=== PATIENT | female | born 1935 | race Caucasian/White ===

== ENCOUNTER 2019-04-22 10:12 | Emergency (ER) | payer OTHER, BC ==
[~2019-04-22] VITALS: Ht 160 cm; Wt 75.7 kg
[2019-04-22 11:52] LABS: ALKALINE PHOSPHATASE 93 U/L (46-116); ALT/SGPT 16 U/L (14-59); AST/SGOT 13 U/L (15-37); BILIRUBIN TOTAL 0.51 mg/dL (0.20-1.00); CALCIUM 8.3 mg/dL (8.5-10.1); CHLORIDE SERUM 107 mmol/L (98-107); CREATININE SERUM 1.7 mg/dL (0.6-1.0); GLUCOSE SERUM 124 mg/dL (74-106); POTASSIUM SERUM 4.7 mmol/L (3.5-5.1); SODIUM SERUM 140 mmol/L (136-145); TOTAL PROTEIN, SERUM 6.9 g/dL (6.4-8.2)
[2019-04-22 12:01] LABS: ALBUMIN 2.9 g/dL (3.4-5.0)
[2019-04-22 12:02] LABS: BASOPHIL % 1.2 % (0-2); PLATELET COUNT 255 x10^3mcL (130-400)
[2019-04-22 12:11] LABS: RED CELL DISTRIBUTION WIDTH 25.8 % (11.5-14.5)
[2019-04-22 12:19] VITALS: BP 99/48
[2019-04-22 12:57] LABS: ovalocyte/elliptocyte 1+; rbc morphology (normal/abnorm) ABNORMAL (NORMAL); tear drop cell (dacryocyte) 1+
== END 2019-04-22 13:22 | disposition left against medical advice (07) ==
LOC: ED 10:12
PROVIDERS: Emergency Medicine
DX: K92.2 Gastrointestinal hemorrhage, unspecified (principal); D64.9 Anemia, unspecified; I48.91 Unspecified atrial fibrillation; E11.22 Type 2 diabetes mellitus with diabetic chronic kidney disease; I12.9 Hypertensive chronic kidney disease with stage 1 through stage 4 chronic kidney disease, or unspecified chronic kidney disease; N18.9 Chronic kidney disease, unspecified; Z95.0 Presence of cardiac pacemaker; Z90.710 Acquired absence of both cervix and uterus; Z98.890 Other specified postprocedural states; Z88.8 Allergy status to other drugs, medicaments and biological substances; Z88.5 Allergy status to narcotic agent
CPT/HCPCS: 36415; 83880; J7040; Q0092